=== PATIENT | female | born 1980 | race Caucasian/White ===

== ENCOUNTER 2017-02-18 23:58 | Emergency (ER) | payer SELFPAY ==
[2017-02-19 00:12] VITALS: BMI 20.5
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
[2017-02-19] MEDS ORDERED: TORADOL 60 MG VIAL IM ONE (00:52)
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
[2017-02-19] MEDS ORDERED: TORADOL 60 MG VIAL ONE (01:06)
[2017-02-19 04:08] VITALS: BP 104/69
== END 2017-02-19 01:55 | disposition home or self-care (01) ==
LOC: ER 23:58
DX: S92.321A Displaced fracture of second metatarsal bone, right foot, initial encounter for closed fracture (principal); V89.0XXA Person injured in unspecified motor-vehicle accident, nontraffic, initial encounter; Y92.9 Unspecified place or not applicable
CPT/HCPCS: 29515; 73630; 96372; 99282; J1885